=== PATIENT | female | born 1980 | race Caucasian/White ===

== ENCOUNTER → 2020-08-02 | Outpatient (CLI) | payer OTHER | LOC: LAB 08:51 | PROVIDERS: ATTEND Orthopaedic Surgery Foot and Ankle Surgery | DX: Z01.812 Encounter for preprocedural laboratory examination (principal); Z20.822 Contact with and (suspected) exposure to COVID-19 ==

== ENCOUNTER 2020-08-06 06:22 | Day surgery (SDC) | payer OTHER ==
[~2020-08-06] VITALS: Ht 160 cm; Wt 61.7 kg
[2020-08-06 06:42] VITALS: BP 108/64
[2020-08-06] MEDS ORDERED: PERCOCET 7.5-31 EAC1 PO (08:58)
[2020-08-06 09:32] VITALS: BP 108/64
[2020-08-06 09:33] VITALS: BP 108/64
--- NOTE | 2020-08-12 09:59 | O ---
[facility] [place] [address] OPERATIVE REPORT Name: EMERALD ARIZMENDI Room #: DEP [facility].#: [id number] Admission: 08/06/20 Attend Phys: Christophe Swenson MD Discharge: 08/06/20 Date of : 76 Report #: [id number] THIS REPORT FOR: cc: VIOLA - No family physician/PCP FAM - No family physician/PCP Christophe Swenson MD ~ DATE OF SERVICE: 08/06/2020 PREOPERATIVE DIAGNOSIS: Left hallux valgus. POSTOPERATIVE DIAGNOSIS: Left hallux valgus. PROCEDURE: 1. Left foot Lapidus with Lapiplasty. 2. Left foot modified Barrett procedure. SURGEON: Dr. Christophe Swenson BAND INSTRUMENT MAKER: Wendy Honeycutt ANESTHESIA: General. ESTIMATED BLOOD LOSS: Minimal. DRAINS: No drains. TOURNIQUET TIME: 90 minutes. DESCRIPTION OF PROCEDURE: The patient brought to the operating room where she was placed under general anesthesia. Once under adequate general anesthesia, her left lower extremity was prepped and draped in sterile manner. The extremity was elevated, exsanguinated, tourniquet placed to 300 mmHg. A dorsal incision over the first TMT joint was made. This was dissected down through the soft tissue to the dorsum of the TMT joint. This was then released manually with an osteotome and then with a sagittal saw. The rotational guidewire was then placed and the compression clamp was placed after placing a small incision over the second metatarsal. Once these were in place, satisfactory reduction of the metatarsal alignment was achieved. The bone cutting block from the Lapiplasty system was placed and the Lapiplasty cuts were made. The joint distractor was then placed and the intervening bone fragments were removed. The joint was then irrigated copiously and prepared with a drill fenestrating the joint multiple times. Compression was then placed across the joint and fixation with a compression screw and the dorsal and medial Lapiplasty place was then achieved. Excellent fixation and alignment was achieved. Distally at the first webspace, a small 2 cm incision was made and the adductor tendon was released [facility] [address] [place] [address] OPERATIVE REPORT Name: EMERALD ARIZMENDI Room #: DEP [facility] M.R.#: [id number] Admission: 08/06/20 Attend Phys: Christophe Swenson MD Discharge: 08/06/20 Date of : 76 Report #: [id number] from the lateral sesamoid and the sesamoid and joint capsule were then fenestrated to allow further reduction of the joint. A separate 1 cm incision was made distally over the bony prominence, which was then dissected down to the joint capsule, which was opened and the bony prominence was excised with a sagittal saw and a rongeur. There did appear to be some instability in the intercuneiform joint. Therefore, fixation across this was achieved with a compression screw as well 23 mm in length. Excellent fixation and alignment was achieved as verified under fluoroscopy. The wounds were then irrigated copiously and closed with 3-0 Vicryl in subcutaneous tissues and 3-0 nylon for the skin. The wound was dressed with Xeroform, 4 x 4s, and sterile soft compressive dressing was placed. Tourniquet was let down at 90 minutes. Toes were pink and warm with good capillary refill. There were no complications from the procedure. The patient tolerated the procedure well and went to recovery room. <ELECTRONICALLY SIGNED> By: Christophe Swenson MD 08/12/20 [id number] Christophe Swenson MD /nt
== END 2020-08-06 10:28 | disposition home or self-care (01) ==
LOC: OR 06:22 → TBA 06:27 → OR 09:22
PROVIDERS: ATTEND Orthopaedic Surgery Foot and Ankle Surgery
DX: M20.12 Hallux valgus (acquired), left foot (principal); K21.9 Gastro-esophageal reflux disease without esophagitis; Z98.890 Other specified postprocedural states; Z79.899 Other long term (current) drug therapy; Z98.51 Tubal ligation status; Z20.822 Contact with and (suspected) exposure to COVID-19
CPT/HCPCS: 50010; 50101; 50386; 56524; 56527; 57091; 57180; 57910; 57946; 57947; 62110; 62900; 70005